=== PATIENT | female | born 1950 | race Caucasian/White ===

== ENCOUNTER → 2017-04-23 | Outpatient (CLI) | payer MEDICARE, OTHER ==
[2015-05-09 18:54] VITALS: BP 154/73
--- NOTE | 2017-04-23 11:21 | RAD ---
CT of the abdomen and pelvis without contrast, 04/23/2017: History: Abdominal pain and nausea Multidetector CT imaging was performed without oral or IV contrast. This study was compromised by patient motion artifact related to claustrophobia. A portion of the lung bases was included on this study. The heart and mediastinum are shifted to the right. There is linear scarring and/or atelectasis in the right base. Is there a history of previous right chest surgery? The unopacified liver is unremarkable. No dense gallstones are seen. There is fatty infiltration in the pancreatic head. No pancreatic mass is evident. The spleen is of normal size. There is a 17 mm cyst in the lateral aspect of the right kidney. It demonstrates a mural opacity compatible with a calcification. A larger nodule in the lateral aspect of left kidney appears to be predominantly cystic. It also demonstrates a mural calcification. There is an additional tiny presumed cyst in the upper pole of the left kidney. These renal lesions are not optimally demonstrated on these noncontrast scans. The kidneys show no evidence of obstruction. There is mild aortic calcific plaquing without evidence of aneurysm. No abdominal or pelvic adenopathy is seen. The uterus is surgically absent. There is a large midline abdominal hernia in the umbilical region. This hernia sac extends into the patient's abdominal pannus and measures approximately 16 x 22 cm. It contains large and small bowel loops, including the cecum and terminal ileum. Reportedly the appendix is surgically absent. There is no evidence of associated bowel obstruction. Colonic diverticula are present, most numerous in the sigmoid region. No paracolonic inflammatory process is seen. No free air or free fluid is evident in the abdomen or pelvis. IMPRESSION: 1. Large abdominal wall hernia containing nonobstructed large and small bowel loops. 2. Sigmoid diverticulosis. 3. Bilateral complicated renal cysts. Multiphase CT or MR scanning may be considered for better characterization of these lesions. 4. Volume loss and scarring in the right lower chest. PQRS Compliance Statement: One or more of the following individualized dose reduction techniques were utilized for this examination: 1. Automated exposure control 2. Adjustment of the mA and/or kV according to patient size 3. Use of iterative reconstruction technique
== END | disposition home or self-care (01) ==
LOC: PMG 08:56
PROVIDERS: ATTEND Physician Assistant Medical
DX: K46.9 Unspecified abdominal hernia without obstruction or gangrene (principal); K57.30 Diverticulosis of large intestine without perforation or abscess without bleeding; N28.1 Cyst of kidney, acquired
CPT/HCPCS: 74176

== ENCOUNTER → 2017-07-07 | Outpatient (CLI) | payer MEDICARE, OTHER ==
[2015-05-09 18:54] VITALS: BP 154/73
[2017-07-07 08:35] LABS: ALBUMIN 3.3 g/dL (3.4-5.0); ALBUMIN/GLOBULIN RATIO 0.7 (1.0-1.7); CALCIUM 9.3 mg/dL (8.5-10.1); CREATININE 0.6 mg/dL (0.6-1.0); GFR 99.4; POTASSIUM 3.6 mmol/L (3.5-5.1); TOTAL BILIRUBIN 0.5 mg/dL (0.2-1.0); TOTAL PROTEIN 7.9 g/dL (6.4-8.2)
== END | disposition home or self-care (01) ==
LOC: LAB 07:53
PROVIDERS: ATTEND Nurse Practitioner
DX: E78.5 Hyperlipidemia, unspecified (principal)
CPT/HCPCS: 36415; 80053; 80061